=== PATIENT | male | born 1965 | race Caucasian/White ===

== ENCOUNTER 2022-01-19 19:05 | Emergency (ER) | payer OTHER, SELFPAY ==
--- NOTE | ~2022-01-19 | XR_ITS ---
[[id number] ] INDICATION: Left rib pain after fall TECHNIQUE: Frontal projection of the upper left ribs, frontal projection of the lower left ribs, obli que projection of all the left ribs, frontal inspiratory chest x-ray for interpretation. FINDINGS: There is an acute left nondisplaced seventh rib fracture. There are no soft tissue abnormal ity seen. The lungs are clear. IMPRESSION: 1: Acute nondisplaced left seventh rib fracture. Reviewed, dictated and finalized at location [facility] [employer]
[2022-01-19 19:38] VITALS: BP 120/79; PULSE 77; RESP 18; TEMP 36.6; O2SAT 97
--- NOTE | 2022-01-19 19:40 | ED.FALL ---
HPI - Fall General Chief Complaint: Unspecified Stated Complaint: fell on ice, pain in ribs Time Seen by Provider: 01/19/22 19:50 Source: patient Mode of arrival: ambulatory Limitations: no limitations History of Present Illness HPI Narrative: 56-year-old man with a history of smoking comes in today complaining of left-sided rib pain that started 4 days ago after he slipped on some ice and fell on his left side. Patient states that he has been sore for the last few days but today he was bending over and while taking a deep breath felt a sharp pain in the left side of his chest. States the pain is worse with taking a deep breath and with movement of his trunk. He denies productive cough, hemoptysis, shortness of breath, fever, vomiting or other injury. complaint: fall Onset (ago): day(s) (4) Fall from: standing Loss of consciousness: none Prolonged down time: no Symptoms prior to fall: none Context: tripped/slipped Location of injury: chest Quality: sharp Associated symptoms (after fall): denies Related Data Home Medications Medication Instructions Recorded Confirmed No Home Medications 01/19/22 01/19/22 Allergies Allergy/AdvReac Type Severity Reaction Status Date / Time No Known Allergies Allergy Verified 01/19/22 19:41 Review of Systems Review of Systems: All systems reviewed & are unremarkable except as noted in HPI and below Constitutional: Constitutional: Denies chills and Denies fever(s) Cardiovascular: Cardiovascular: Reports chest pain, Denies rapid heart rate, Denies radiating jaw, neck or arm pain and Denies slow heart rate Respiratory: Respiratory: Denies cough, Denies dyspnea and Denies wheezing Gastrointestinal: Gastrointestinal: Denies abdominal pain, Denies diarrhea, Denies nausea and Denies vomiting Genitourinary: Genitourinary: Denies hematuria Musculoskeletal: Musculoskeletal: Denies back pain, Denies arthralgias and Denies joint swelling Integumentary/Breasts: Skin/Breast: Denies pruritus, Denies erythema and Denies rash Neurologic: Denies vertigo, Denies dizziness, Denies syncope, Denies focal weakness and Denies numbness [facility] Surgical History Surgical History (Updated 01/19/22 @ 20:02 by Rad Ceja MD) History of carpal tunnel surgery of left wrist Social History Social History (Updated 01/19/22 @ 20:02 by Rad Ceja MD) Smoking status: Current every day smoker Alcohol intake: never Substance use: never Exam Const: General: healthy appearing and alert Orientation/consciousness: patient oriented x3 Limitations: no limitations Other: Moderate acute distress. Splinting left chest Chest: Chest palpation & inspection: normal inspection of the chest and tenderness rib (left lateral/lower) Resp: Effort & Inspection: normal respiratory effort and not labored Auscultation: clear to auscultation bilaterally, no rales, no rhonchi and no wheezes Cardio: Rate: regular rate Rhythm: regular rhythm Heart sounds: no murmurs Skin: General skin exam: normal color, no jaundice and no pallor Rashes: no rashes Neuro: General: patient oriented x3, moves all extremities, no focal motor deficits and CN's II-XI intact bilaterally Speech: normal speech Gait exam (Neuro): Normal gait present Extrem: General: normal to inspection and no clubbing, cyanosis or edema Psych: Appearance: grossly normal and well kempt Mental Status: mental status grossly normal Affect: normal affect Attitude: cooperative Thought content: Yes Normal thought content present Course Vital Signs Vital signs: Vital Signs Temperature 36.6 C 01/19/22 19:38 Pulse Rate 77 01/19/22 19:38 Respiratory Rate 18 01/19/22 19:38 Blood Pressure 120/79 01/19/22 19:38 Pulse Oximetry 97 01/19/22 19:38 Temperature 36.6 C 01/19/22 19:38 Pulse Rate 77 01/19/22 19:38 Respiratory Rate 18 01/19/22 19:38 Blood Pressure 120/79 01/19/22 19:38 Pulse Oximetry 97
[2022-01-19 20:50] VITALS: BP 128/81; PULSE 77; RESP 16; O2SAT 96
== END 2022-01-19 20:53 | disposition home or self-care (01) ==
PROVIDERS: Emergency Provider Emergency Medicine; PCP Family Medicine
DX: S22.32XA Fracture of one rib, left side, initial encounter for closed fracture (principal); W00.0XXA Fall on same level due to ice and snow, initial encounter
CPT/HCPCS: 71101; 99283